=== PATIENT | female | born 1930 | race African-American/Black ===

== ENCOUNTER 2020-12-09 16:16 | Inpatient (IN) | payer OTHER ==
[~2020-12-09] VITALS: Ht 154.9 cm; Wt 103.5 kg
--- NOTE | ~2020-12-09 | EMS ---
[address] [address] EMS Patient Care Report Name: MIHAI HARDY Room #: REG EDEN Ghotra#: [id number] Admission: 12/09/20 Attend Phys: Discharge: Date of : [birth year] Report #: [id number] THIS REPORT FOR: //name// Report Transmitted: 12/09/2020 16:01 EMS Care Summary [place], [place]/[facility] Incident [id number] @ 12/09/2020 15:37 Incident Location [facility] CRISTI MARTINEZ F3-1 Patient MIHAI HARDY Female, 89 Years 1930 Patient Address [address] [address] Patient History Hypertension (HTN),Kidney/Renal Failure,Gastrointesinal Hemorrhage,Osteoarthritis,Anemia,Edema,Sleep Apnea,Type 2 Diabetes,Coronary Artery Disease (CAD),Myocardial Infarction (OR),Novel Coronavirus (COVID-19), Patient Allergies Niacin, Patient Medications Atorvastatin, Oxycodone, Famotidine, Isosorbide, Docusate Sodium, ASA, Carvedilol, Ferrous Sulfate, Gabapentin, Insulin, Chief Complaint Possible blood clot in right leg Disposition Transported No Lights/[place] Dispatch Reason Sick Person Transported To [facility] [address] [place] [address] EMS Patient Care Report Name: MIHAI HARDY Room #: REG [place]#: [id number] Admission: 12/09/20 Attend Phys: Discharge: Date of : [birth year] Report #: [id number] Called to the scene for a sick. Upon arrival, pt was ROMERO x 3 sitting in bed with O2 on. NH staff reported a blood clot in the pt right leg and she needed transported to [facility] ER for further eval & tx. Pt said her leg has felt this way for 2-3 weeks and nothing was done. Pt was moved to the EMS cot and loaded into the ambulance w/o incident. Vitals obtained. Attempt IV w/o success. Vitals repeated. O2 cont. En route: no changes. RR to [facility]. Arrived: pt taken to ER #3 and moved to their bed w/o incident. Pt care & report to ER staff. Initial Vitals @16:07P: 87,R: 16,BP: 150/76,Pain: 0/10,GCS: 15,CO: 3,SpO2: 96,Revised Trauma: 12, @16:01P: 16,R: 16,BP: 139/69,Pain: 0/10,GCS: 15,SpO2: 82,Revised Trauma: 12, Assessments @15:50MENTAL:Person Oriented,Time Oriented,Event Oriented,Place Oriented,SKIN:HEENT:LUNG SOUNDS:ABDOMEN:PELVIS//GI:EXTREMITIES:Right Leg: Abnormal Sensation,Left Arm: No Abnormalities,Right Arm: No Abnormalities,Left Leg: No Abnormalities,PULSE:Radial: 2+ Normal,Pedal: 1+ Thready,NEURO:No Abnormalities, Impression Extremity Pain Procedures @15:50ALS AssessmentResponse: UnchangedSucceeded@16:04Saline Lock cc (20 ga) Site: Antecubital-LeftResponse: UnchangedFailed@15:58StretcherResponse: Unchanged@PTAOxygen FlowRate: 2 Device: Nasal Cannula (NC) Response: ImprovedSucceeded Timeline CELEBRITY MANAGER,Oxygen FlowRate: 2 Device: Nasal Cannula (NC) Response: ImprovedSucceeded, 15:34,Call Received 15:34,Dispatch Notified 15:37,Dispatched 15:37,En Route 15:47,On Scene 15:50,At Patient 15:50,ALS Assessment,Response: UnchangedSucceeded, 15:58,Stretcher,Response: Unchanged 16:01,BP: 139/69 M,PULSE: 16,RR: 16 R,SPO2: 82 Ox,ETCO2: ,BG: ,PAIN: 0,GCS: 15, 16:04,Saline Lock cc 20 ga Site: Antecubital-Left,Response: UnchangedFailed, 16:07,BP: 150/76 M,PULSE: 87,RR: 16 R,SPO2: 96 Ox,ETCO2: ,BG: ,PAIN: 0,GCS: 15, 16:07,Depart Scene 16:10,At Destination 16:29,Call Closed [address] [address] EMS Patient Care Report Name: MIHAI HARDY Room #: MATILDA Ghotra#: [id number] Admission: 12/09/20 Attend Phys: Discharge: Date of : [birth year] Report #: [id number] Disclaimer v1.1 Copyright 202 [employer] This EMS Care Summary contains data elements from the applicable legal record (which may be displayed differently). It is designed to provide pertinent information for the following purposes: continuity of care, clinical quality, and state data reporting. The complete legal record is available to ED staff and administrators of the receiving hospital in [employer]'s Patient Tracker. All data is provided "as is."
[2020-12-09 16:17] VITALS: BP 142/70
[2020-12-09 17:13] LABS: ANION GAP 6 mmol/L (7-16); BUN 23 mg/dL (7-18); CALCIUM 9.2 mg/dL (8.5-10.1); CHLORIDE 105 mmol/L (98-107); CO2 28 mmol/L (21-32); GLUCOSE 138 mg/dL (74-106); POTASSIUM 4.6 mmol/L (3.5-5.1); SODIUM 139 mmol/L (136-145)
[2020-12-09 17:19] LABS: ALBUMIN 1.7 g/dL (3.4-5.0); APTT 26.6 Seconds (24.5-32.8); DIRECT BILIRUBIN < 0.1 mg/dL (<0.1-0.2); PROTIME 10.6 Seconds (9.3-11.4); SGOT 21 U/L (15-37); SGPT 20 U/L (30-65); TOTAL BILIRUBIN 0.3 mg/dL (0.2-1.0); TOTAL PROTEIN 7.7 g/dL (6.4-8.2)
[2020-12-09 17:20] LABS: HEMATOCRIT 22.7 % (37.0-47.0); HEMOGLOBIN 7.3 gm/dL (12.0-15.0); MCH 23.9 pg (26.0-34.0); MCHC 32.2 g/dL (28.0-37.0); MCV 74.3 fL (80.0-100.0); PLATELET COUNT 274 thou/uL (150-400); RBC 3.06 mil/uL (4.20-5.00); RDW 24.8 % (10.5-14.5); WBC 10.1 thou/uL (4.0-11.0)
[2020-12-09 17:49] LABS: ABSOLUTE NEUTROPHILS 6.7 thou/uL (1.4-8.2); ANISOCYTOSIS 2+; LARGE PLATELETS OCCASIONAL; MICROCYTES 1+
[2020-12-09 17:50] LABS: TARGET CELLS FEW
[2020-12-09] MEDS ORDERED: ASA81BEC PO (20:15)
[2020-12-09] MEDS ORDERED: FERROUS SULFAT325 MG PO (20:16)
[2020-12-09] MEDS ORDERED: DULCOLAX STOOL100 M1 PO (20:16)
[2020-12-09] MEDS ORDERED: CARVEDILOL3.125 MG PO (20:16)
[2020-12-09] MEDS ORDERED: FAMOTIDINE20 MG PO (20:16)
[2020-12-09] MEDS ORDERED: LIPITOR40 MG PO (20:16)
[2020-12-09] MEDS ORDERED: NEURONTIN100 MG PO (20:17)
[2020-12-09] MEDS ORDERED: FLOMAX0.4 MG PO (20:17)
[2020-12-09] MEDS ORDERED: LANTUSSOLASTAR SUBQ (20:18)
[2020-12-09] MEDS ORDERED: MIRALAX17 GM PO (20:18)
[2020-12-09] MEDS ORDERED: ISOSORBIDE MONO60 M1 PO (22:23)
[2020-12-09] MEDS ORDERED: LIDODERM1 EACH TOP (22:23)
[2020-12-09] MEDS ORDERED: MILK OF MA400 MG/5 M PO (22:23)
[2020-12-09] MEDS ORDERED: ROXICODONE5 M2 PO (22:24)
[2020-12-09] MEDS ORDERED: JANUVIA25 MG PO (22:25)
[2020-12-09] MEDS ORDERED: REFRESH TEARS15 ML OPHTHALMIC (22:25)
[2020-12-10 08:06] LABS: HEMATOCRIT 23.3 % (37.0-47.0); MCH 24.1 pg (26.0-34.0); MCHC 31.5 g/dL (28.0-37.0); MCV 76.5 fL (80.0-100.0); RBC 3.04 mil/uL (4.20-5.00); RDW 25.2 % (10.5-14.5); WBC 11.7 thou/uL (4.0-11.0)
[2020-12-10 08:10] LABS: CALCIUM 9.4 mg/dL (8.5-10.1); CREATININE 1.8 mg/dL (0.6-1.0)
[2020-12-10 08:12] LABS: POTASSIUM 5.6 mmol/L (3.5-5.1)
[2020-12-10 08:13] LABS: HEMOGLOBIN 7.3 gm/dL (12.0-15.0)
[2020-12-10 11:48] LABS: URINE BILIRUBIN NEGATIVE (Negative); URINE BLOOD NEGATIVE (Negative); URINE COLOR YELLOW; URINE GLUCOSE-RANDOM* NEGATIVE (Negative); URINE KETONES NEGATIVE (Negative); URINE LEUKOCYTES-REFLEX NEGATIVE (Negative); URINE NITRITE-REFLEX NEGATIVE (Negative); URINE PROTEIN (DIPSTICK) 1+ (Negative)
[2020-12-10 11:49] LABS: URINE CLARITY SL HAZY
[2020-12-10 12:03] LABS: BACTERIA-REFLEX >30 Many /HPF (None Seen); CASTS None Seen /LPF (None Seen); CRYSTALS None Seen /LPF (None Seen); RENAL EPITHELIAL CELLS 4-10 Moderate /LPF (None Seen); SQUAMOUS None Seen /LPF (0-3); TRANSITIONAL EPITHEL CELL 0-3 Few /LPF (None Seen); URINE RBC None Seen /HPF (0-2); URINE WBC-REFLEX 0-5 Rare /HPF (0-5)
[2020-12-10 12:08] LABS: HEMATOCRIT 23.3 % (37.0-47.0); HEMOGLOBIN 7.7 gm/dL (12.0-15.0)
[2020-12-10 12:10] LABS: CALCIUM 9.7 mg/dL (8.5-10.1); CREATININE 1.8 mg/dL (0.6-1.0)
[2020-12-10 12:11] LABS: POTASSIUM 4.1 mmol/L (3.5-5.1)
[2020-12-10 12:54] VITALS: BP 104/48
[2020-12-10 17:48] VITALS: BP 126/50
--- NOTE | 2020-12-10 19:47 | NUR ---
SPOKE WITH DR. LYNNE REGARDING PATIENT'S CODE STATUS. DR. LYNNE STATES THAT THE PATIENT WAS CLEAR STATE OF MIND WHEN DISCUSSING THE DESIRE TO BE DNR STATUS. DR. LYNNE STATES SHE WILL PLACE DNR ORDER, BUT DOES NEED TO CALL AND SPEAK WITH DPOA TO MAKE SURE THAT ALL PARTIES ARE ON THE SAME PAGE. PATIENT MADE WISHES CLEAR THAT SHE WANTS NO HEROIC MEASURES WHEN SPEAKING WITH DR. LYNNE.
[2020-12-10 20:40] VITALS: BP 143/58
--- NOTE | 2020-12-10 23:31 | NUR ---
INFORMED BY RT THAT PT REFUSED CPAP
[2020-12-11] VITALS (8 sets, daily range): BP systolic 104–155; BP diastolic 53–81
[2020-12-11 04:20] LABS: INR 1.1; PROTIME 10.8 Seconds (9.3-11.4)
--- NOTE | 2020-12-11 04:54 | HC ---
[facility] [place] [address] CONSULTATION Name: MIHAI HARDY Room #: 450-P ADM IN M.R.#: [id number] Admission: 12/09/20 Attend Phys: Felice Jones MD Discharge: Date of : [birth year] Report #: [id number] THIS REPORT FOR: cc: Carlos Ravi MD, Christopher B. MD Barry, Joseph W. MD ~ DATE OF SERVICE: 12/10/2020 INFECTIOUS DISEASE CONSULTATION ATTENDING PHYSICIAN: Dr. Jones. REASON FOR EVALUATION: Pneumonitis. The patient was previously diagnosed with COVID back in 09/2020, now presents with right lower extremity deep venous thrombosis. HISTORY OF PRESENT ILLNESS: Chart reviewed, patient examined. This 89-year-old with known history of diabetes mellitus, hypertension, has known vasculopathy, who had been staying at a facility, had increasing pain associated with the right lower extremity. She notes it was through the extent of the limb, also had some dyspnea. She was apparently ill. This prompted evaluation including venous Doppler, which showed evidence of right lower extremity DVT. She was referred for ongoing treatment as far as the evaluation of shortness of breath over the course of last 2-3 weeks. Followup chest x-ray did show diffuse bilateral infiltrates both alveolar as well as interstitial. There is possibility of pulmonary emboli, underwent V/Q scan, felt to be low probability and pulmonary embolic disease. BNP was elevated at 4789. Urinalysis was fairly unrevealing as well. She has not been febrile that she knows. ALLERGIES: NIACIN. CURRENT MEDICATIONS: Include gabapentin, enoxaparin, famotidine, atorvastatin, tamsulosin, aspirin, carvedilol, and furosemide. PAST MEDICAL HISTORY: Includes diabetes mellitus type 2, history of hypertension, hyperlipidemia, chronic anemia, obstructive sleep apnea, known coronary artery disease with previous acute myocardial infarction, status post aortocoronary bypass grafting, now with right lower extremity DVT and previous history of COVID-19 infection. SOCIAL HISTORY: No ethanol. No illicit drug use. FAMILY HISTORY: Noncontributory. REVIEW OF SYSTEMS: Otherwise, not obtainable. [facility] [address] [place] [address] CONSULTATION Name: MIHAI HARDY [facility] IN M.R.#: [id number] Admission: 12/09/20 Attend Phys: Felice Jones MD Discharge: Date of : [birth year] Report #: [id number] PHYSICAL EXAMINATION: GENERAL: She appears chronically ill, undernourished. She is in a position with left lateral. She complains of severe right lower extremity pain, difficult to redirect her. She is tearful at times. VITAL SIGNS: Temperature 97.8, pulse 80, respirations 16, and blood pressure 104/48. SKIN: Warm, dry, no rashes. HEENT: Extraocular muscles intact. NECK: Appears to be supple. She is on supplemental oxygen 1 liter per nasal cannula. LUNGS: Diminished breath sounds overall. She has got some scattered crackles bilaterally. HEART: Regular, soft systolic murmur. ABDOMEN: Soft. There are no apparent peritoneal signs, some tenderness. GENITOURINARY AND RECTAL: Deferred. LABORATORY DATA: Electrolytes: Sodium 136, potassium 4.1, chloride 100, bicarbonate is 30, BUN and creatinine 23 and 1.8, and glucose of 105. Urinalysis, 0-5 white cells. CBC: White count 11.7, H and H 7.3 and 23.3, and platelets of 302. ASSESSMENT AND PLAN: Pneumonitis, complicated by respiratory failure, likely multifactorial, certainly cannot exclude a component of congestive heart failure, but at risk for aspiration as well. There is no evidence of PE at this point. I think it is reasonable can start empiric therapy on her given the overall significant risk of her lack of reserve the setting of pneumonitis which would progress and __ anything. I think she can utilize the incentive spirometer either see how she does clinically and continue therapy for the DVT. Try to improve her nutritional status as able. Symptomatic pain control as well. <ELECTRONICALLY SIGNED> By: Arash Ramachandran MD 12/11/20 0454 1703 23 Arash Ramachandran MD /nt
--- NOTE | 2020-12-11 07:49 | NUR ---
PT WAS ADMITTED TO THE UNIT FROM THE ER IN A STABLE CONDITION.PT WAS ON HEPARIN DRIP BEFORE SHE GOT TO THE FLOOR.PT C/O PAIN,MANAGED WITH MED.FERNANDEZ CATH TO DD.ADMISSION HX,EDUCATION AND ASSESSMENT COMPLETED.PT ON 2L/NC.REPORT TO AM NURSE.
[2020-12-11 08:40] LABS: ALBUMIN 1.8 g/dL (3.4-5.0); CALCIUM 9.5 mg/dL (8.5-10.1); MAGNESIUM 2.1 mg/dL (1.8-2.4); PHOSPHORUS 4.9 mg/dL (2.6-4.7); TOTAL BILIRUBIN 0.2 mg/dL (0.2-1.0); TOTAL PROTEIN 7.2 g/dL (6.4-8.2)
[2020-12-11 09:18] LABS: ABSOLUTE NEUTROPHILS 7.8 thou/uL (1.4-8.2); BASOPHILS 0.5 % (0.0-2.0); EOSINOPHILS 6.9 % (0.0-3.0); HEMATOCRIT 22.2 % (37.0-47.0); LYMPHOCYTES 16.8 % (24.0-44.0); MCH 23.5 pg (26.0-34.0); MCHC 31.7 g/dL (28.0-37.0); MCV 73.9 fL (80.0-100.0); MONOCYTES 11.1 % (1.0-8.0); PLATELET COUNT 326 thou/uL (150-400); POLYS 64.7 % (36.0-66.0); RBC 3.01 mil/uL (4.20-5.00)
[2020-12-11 10:21] LABS: ANISOCYTOSIS 2+; HYPOCHROMASIA 1+; OVALOCYTES OCCASIONAL; POIKILOCYTOSIS 1+; TARGET CELLS FEW
[2020-12-11 10:22] LABS: LARGE PLATELETS OCCASIONAL; MICROCYTES 1+; POLYCHROMASIA SLIGHT
--- NOTE | 2020-12-11 12:40 | 2DMMODE ---
[facility] [place] [address] 2 D/M-MODE ECHOCARDIOGRAM Name: MIHAI HARDY Room #: 450-P ADM IN M.R.#: [id number] Admission: 12/09/20 Attend Phys: Felice Jones MD Discharge: Date of : [birth year] Report #: [id number] THIS REPORT FOR: cc: Carlos Ravi MD, Christopher B. MD Lundgren, Craig H. MD [facility] ~ APPROVED REPORT Study performed: 12/10/2020 08:45:06 EXAM: Comprehensive 2D, Doppler, and color-flow Echocardiogram Patient Location: Bedside Room #: ER 3 Status: on-call BSA: 2.01 HR: 73 bpm BP: 156/54 mmHg Rhythm: NSR Other Information Study Quality: Adequate Technically limited study due to body habitus, inability to position patient. Indications Congestive Heart Failure 2D Dimensions RVDd: 33.34 mm IVSd: 7.82 (7-11mm) LVOT Diam: 18.70 (18-24mm) LVDd: 43.98 mm PWd: 10.35 (7-11mm) Ascending Ao: 23.56 (22-36mm) LVDs: 32.52 (25-40mm) Aortic Root: 26.84 mm IVC: 21.00 mm Volumes Left Atrial Volume (Systole) Single Plane 4CH: 58.47 mL Single Plane 2CH: 78.14 mL LA ESV Index: 35.00 mL/m2 Aortic Valve AoV Peak Thomas.: 2.07 m/s AO Peak Gr.: 17.17 mmHg LVOT Max P.06 mmHg AO Mean Gr.: 7.69 mmHg LVOT Mean P.43 mmHg [facility] [address] [address] 2 D/M-MODE ECHOCARDIOGRAM Name: MIHAI HARDY Room #: [address] [place] [address] [place] [facility]#: [id number] Admission: 12/09/20 Attend Phys: Felice Jones MD Discharge: Date of : [birth year] Report #: [id number] AO V2 Mean: 1.30 m/s LVOT Max V: 1.12 m/s AO V2 VTI: 48.12 cm LVOT Mean V: 0.71 m/s JUAN (VTI): 1.57 cm2 LVOT V1 VTI: 27.49 cm JUAN Vmax: 1.49 cm2 SV (LVOT): 75.46 mL Mitral Valve E/A Ratio: 0.9 MV Decel. Time: 197.20 ms MV E Max Thomas.: 1.08 m/s MV A Thomas.: 1.19 m/s MV PHT: 57.19 ms IVRT: 83.04 ms Pulmonary Valve PV Peak Thomas.: 0.96 m/s PV Peak Gr.: 3.68 mmHg Pulmonary Vein P Vein S: 0.45 m/s P Vein A: 0.21 m/s P Vein D: 0.59 m/s P Vein A Dur.: 114.2 msec P Vein S/D Ratio: 0.76 Tricuspid Valve TR Peak Thomas.: 3.85 m/s RAP Estimate: 5.00 mmHg TR Peak Gr.: 59.23 mmHg PA Pressure: 64.00 mmHg Left Ventricle The left ventricle is normal size. There is normal LV segmental wall motion. There is normal left ventricular wall thickness. The left ventricular systolic function is normal. The left ventricular ejection fraction is within the normal range. LVEF is 60-65%. Mild diastolic dysfunction Right Ventricle The right ventricle is normal size. Atria Left atrium is mildly dilated. Right atrium is at the upper limits of normal. Aortic Valve Aortic valve leaflets are mildly calcified, trileaflet. Mild stenosis No aortic regurgitation is present. There is mild valvular aortic stenosis. Calculated aortic valve area is 1.6 cm2 with maximum pressure gradient of 17 mmHg and mean pressure gradient of 7.7 [place] [address] 2 D/M-MODE ECHOCARDIOGRAM Name: MIHAI HARDY Room #: [address] [place] [address] IN M.R.#: [id number] Admission: 12/09/20 Attend Phys: Felice Jones MD Discharge: Date of : [birth year] Report #: [id number]. Mitral Valve Mitral valve leaflets are mildly calcified. Trace mitral regurgitation. No evidence of mitral valve stenosis. Tricuspid Valve The tricuspid valve is normal in structure. Trace to mild tricuspid regurgitation. PAP is estimated at 64 mmHg. Pulmonic Valve The pulmonary valve is normal in structure. Mild pulmonic regurgitation. Great Vessels The aortic root is normal in size. IVC is upper limits of normal in size and collapses >50% with inspiration. Pericardium There is no pericardial effusion. <Conclusion> The left ventricular systolic function is normal. There is normal LV segmental wall motion. LVEF is 60-65%. Mild diastolic dysfunction Left atrium is mildly dilated. Aortic valve leaflets are mildly calcified, trileaflet. Mild stenosis, no insufficiency Mitral valve leaflets are mildly calcified. Trace mitral regurgitation. Trace to mild tricuspid regurgitation. Pulmonary artery pressure estimated at 64 mmHg. There is no pericardial effusion. <ELECTRONICALLY SIGNED> By: Delano Samuel MD, FACC 12/11/20 1240 1240 1240 Delano Samuel MD, FACC /INF
--- NOTE | 2020-12-11 19:40 | NUR ---
VERBAL ORDER RECEIVED FROM DR LYNNE TO TITRATE HEPERIN DRIP TO 10 UNITS/KG/HR. APTT TO BE RECHECKED IN 2HRS.
--- NOTE | 2020-12-11 19:50 | NUR ---
Assumed pt care this am, received on a heparin drip informed house sup for pt to be moved to the right level of care, was advised no action will be taken and the pt will stay on the floor as mentioned by the transfer and pumphouse operator. FC in place, drainig yellow urine. Right leg pain and edema noted, managed with pain medications. Was sent down for diagnostics (xr...) refised blood transfusion at that time, pt requested this be done after dinner. IV team placed a 20g for this. APTT results came back at 1640 critical labs called out to the MD, orders given adria stop heparin drip for 2 hours and retake aptt. Pending stool collection as well. POC followed, partiel relief is noted for pain, medications given as per emar. Consent signed for blood trasnfusion, endorsed to the night nurse.
[2020-12-12 04:59] VITALS: BP 155/62
[2020-12-12 06:14] LABS: ABSOLUTE NEUTROPHILS 6.3 thou/uL (1.4-8.2); BASOPHILS 0.3 % (0.0-2.0); EOSINOPHILS 6.5 % (0.0-3.0); HEMATOCRIT 27.4 % (37.0-47.0); LYMPHOCYTES 19.6 % (24.0-44.0); MCH 24.7 pg (26.0-34.0); MCHC 32.7 g/dL (28.0-37.0); MCV 75.5 fL (80.0-100.0); MONOCYTES 12.8 % (1.0-8.0); PLATELET COUNT 289 thou/uL (150-400); POLYS 60.8 % (36.0-66.0); RBC 3.63 mil/uL (4.20-5.00); RDW 24.2 % (10.5-14.5); WBC 10.3 thou/uL (4.0-11.0)
[2020-12-12 06:28] LABS: ALBUMIN 1.7 g/dL (3.4-5.0); CREATININE 2.3 mg/dL (0.6-1.0); MAGNESIUM 1.9 mg/dL (1.8-2.4); PHOSPHORUS 4.6 mg/dL (2.5-4.9); POTASSIUM 3.5 mmol/L (3.5-5.1); TOTAL BILIRUBIN 0.5 mg/dL (0.2-1.0); TOTAL PROTEIN 7.5 g/dL (6.4-8.2)
--- NOTE | 2020-12-12 07:19 | NUR ---
PLACING PT. ON HOLD FOR OT DUE TO DR. LYNNE'S PROGRESS NOTE ON 12/11/2020 STATING TO HOLD P.T. AT THIS TIME DUE TO PAINFUL R LE DVT. OT WILL ALSO HOLD AN WAIT FOR NEW ORDERS.
--- NOTE | 2020-12-12 08:04 | NUR ---
ASSUMED CARE OF PT AT 1900HRS. PT AOX3 AND LETS NEEDS BE KNOWN. FALL PRECAUTION IN PLACE. HEPERIN DRIP CONTINUED. O2 CONTINUED AT 2L VIA NC. FERNANDEZ IN PLACE AND PATIENT. 1 UNIT PRBC TRANSFUSED. PT COMPLAINED OF RLE PAIN AND PRN PAIN MEDS PROVIDED. PT WAS ABKE TO SLEEP PART OF THE SHIFT. VSS AND NO S/S OF ACUTE DISTRESS. REPORT GIVEN TO AM RN.
[2020-12-12 08:06] VITALS: BP 131/57
[2020-12-12 12:05] LABS: ANISOCYTOSIS 3+
[2020-12-12 15:18] LABS: HEMATOCRIT 28.9 % (37.0-47.0); HEMOGLOBIN 9.2 gm/dL (12.0-15.0)
--- NOTE | 2020-12-12 16:30 | NUR ---
PT ADMITTED RELATED TO DVT,CHF. MC REVEIWED CHART AND SPOKE WITH CARE TEAM. CM CALLED AND SPOKE WITH PT OVER THE PHONE THIS DAY. 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 PT INDICATED THAT SHE WON'T BE ABLE TO RETURN HOME ALONE AND ASKED THAT CM SPEAK TO HER DPOA REGARDING DC PLANNING. CM ATTEMTPED NUMEROUS PHONE CALLS TO PT'S DPOA WITH NO ANSWER. STAFF AT [facility] INDICATED THAT FAMILY HAD INDICATED DESIRE FOR PT TO GO TO PENITENTIARY CARE AT [facility] [employer] SKILLED. CM TO CONTINUE TO REACH OUT TO DPOA TO FACILITATE DC POSSIBLE TO [facility].
[2020-12-12 16:53] VITALS: BP 152/61
--- NOTE | 2020-12-12 19:34 | NUR ---
Assumed pt care at 7am.Pt in bed resting and waiting for breakfast.Assessment completed.vss.Sr per revenue cycle manager.Dr Lopez and Duarte here,order noted. Pt left for us of lower extremity this am and returned to room one hour later. Pt on heparin gtt and adjusted rate per APTT report.Oxy ir given for leg pain as requested by pt with partial relief.Pt transfered to [facility] later this evening around 1800 for closer monitor on heparin gtt.Report off to Lupe hidalgo.Family notified about pt transfered to [facility].
--- NOTE | 2020-12-12 20:01 | NUR ---
PT ARRIVED TO UNIT FROM 4W APPROX 1814. PT ALERT, ORIENTED, VSS. O2 WNL 2L. DENIES SOB. HEPARIN GTT CONTINUES PER PROTOCOL. DENIES NEEDS. REPORT PASSED TO NOC RN.
[2020-12-12 20:30] VITALS: BP 118/58
[2020-12-13 00:45] VITALS: BP 139/63
--- NOTE | 2020-12-13 04:05 | NUR ---
Assumed pt care at 1900. Pt is alert and oriented. No sign of distress noted. Pt verblized pain. Pain med administered upon request. Pt is stable. Fall precaution in place. Assessment completed and documented. No acute events noted. No acute events overnight. Denies chest pain. Continue to monitor. No Further needs at this time.
[2020-12-13 04:45] VITALS: BP 137/64
[2020-12-13 06:52] LABS: HEMATOCRIT 27.2 % (37.0-47.0); HEMOGLOBIN 8.6 gm/dL (12.0-15.0); MCH 23.9 pg (26.0-34.0); MCHC 31.7 g/dL (28.0-37.0); MCV 75.6 fL (80.0-100.0); RBC 3.6 mil/uL (4.20-5.00); RDW 24.2 % (10.5-14.5)
[2020-12-13 07:15] VITALS: BP 144/62
[2020-12-13 07:28] LABS: CALCIUM 9.2 mg/dL (8.5-10.1); CREATININE 2.4 mg/dL (0.6-1.0); POTASSIUM 3.7 mmol/L (3.5-5.1)
--- NOTE | 2020-12-13 09:31 | NUR ---
Assess due to high BMI 43.1, extreme class III obesity. admit with CHF. Appetite is good. Wts down 3 lb. On appropriate carb controlled, 2g Na diet order. Low nutrition risk
[2020-12-13 12:30] VITALS: BP 113/50
--- NOTE | 2020-12-13 15:35 | NUR ---
Spoke with [facility] who reports they have no DPOA paperwork on file. Reports plan for patient to dc ltc to [facility]. Sp with [facility] who reports they have accepted patient for ltc. Sp with sister who reports dc date was to be Saturday from [facility]. She reports plan is to dc to [facility]. plan to send updates.
--- NOTE | 2020-12-13 16:53 | NUR ---
FAXED CLINICAL UPDATE TO [facility] SPOKE WITH RENÉ IN ADM SHE RECEIVED UPDATE. DP TO FOLLOW.
[2020-12-13 17:00] VITALS: BP 175/56
--- NOTE | 2020-12-13 18:14 | NUR ---
ASSESSMENT CHARTED - MEDS PER VIBHA - ALEIDA DIET AND FLUIDS. NO CO'S OF NAUSEA. GIVEN PAIN MEDS WITH MOD/ TO MIN EFFECT ON PAIN PER PATIENT. UA TO LAB ORDERED - HEPARIN CONTINUES. THERAPEUTIC THIS AM. PT SEEN BY PT / OT THIS SHIFT. NO CO'S AT THE PRESENT TIME.
[2020-12-13 20:45] VITALS: BP 142/61
[2020-12-14 04:45] VITALS: BP 150/58
[2020-12-14 07:15] VITALS: BP 132/49
[2020-12-14 07:20] LABS: ALBUMIN 1.8 g/dL (3.4-5.0); CALCIUM 9.7 mg/dL (8.5-10.1); CREATININE 2.4 mg/dL (0.6-1.0); PHOSPHORUS 4.4 mg/dL (2.6-4.7)
[2020-12-14 07:38] LABS: HEMATOCRIT 27.3 % (37.0-47.0); HEMOGLOBIN 8.7 gm/dL (12.0-15.0); MCH 24.2 pg (26.0-34.0); MCHC 31.8 g/dL (28.0-37.0); RBC 3.59 mil/uL (4.20-5.00); RDW 24.4 % (10.5-14.5); WBC 12.8 thou/uL (4.0-11.0)
[2020-12-14 11:23] VITALS: BP 121/52
[2020-12-14 11:57] LABS: PROT/CREAT RATIO 1.2; URINE CREATININE-RANDOM* 90.3 mg/dL; URINE PROTEIN-RANDOM* 104.5 mg/dL (<11.9)
--- NOTE | 2020-12-14 13:13 | NUR ---
Patient possibly dc to ltc in am. Discussed with patitent possible dc in am to [facility]. She is agreeable.
[2020-12-14 15:45] VITALS: BP 136/55
--- NOTE | 2020-12-14 20:04 | NUR ---
ASSESSMENT CHARTED - MEDS PER JAN - ALEIDA DIET AND FLUIDS - NO CO'S OF PAIN OR NASUEA. GIVEN PAIN MEDS PER JAN - PT STATES IN COMSTANT PAIN AND MEDS JUST HELP A LITTLE. PT UP TO [facility] AND HAD BM THIS AFTERNOON. PT UP WITH MOD ASSIST - USE OF GAIT BELT. PT TO HAVE HEPARIN D/C'S THIS EVEING AND STARTED ON PO ANTI-COAGULATION - PT OR POSSIBLE TRANSFER TOMORROW TO LTC FACILITY. NO CO'S AT THE PRESENT TIME.
[2020-12-14 20:27] VITALS: BP 123/58
[2020-12-15 03:13] VITALS: BP 149/62
--- NOTE | 2020-12-15 04:27 | NUR ---
ASSESSED PT HYDROCODONE GIVEN FOR PAIN. IV HEPARIN DC. ON 2L OF O2. BSG CHECKED AND INSULIN GIVEN. NO FURTHER SIGNS OF DISCOMFORT. FALL PREC IN PLACE AND CALL LIGHT AT REACH WILL CONT TO MONITOR.
[2020-12-15 05:06] LABS: ALBUMIN 1.8 g/dL (3.4-5.0); CALCIUM 9.1 mg/dL (8.5-10.1); CREATININE 2.3 mg/dL (0.6-1.0); PHOSPHORUS 4.3 mg/dL (2.6-4.7); POTASSIUM 4.1 mmol/L (3.5-5.1)
[2020-12-15 07:07] VITALS: BP 149/63
[2020-12-15] MEDS ORDERED: ELIQUIS5 MG PO (09:44)
[2020-12-15 11:25] VITALS: BP 136/58
--- NOTE | 2020-12-15 13:17 | NUR ---
Pt dcing to snf at [facility] this afternoon 3pm w/c meena. CM attempted x 3 to reach pt's sister Constantine with out response. The pt also notes she has attempted to call her sisters. Call back rec'd from sister Les and she will confirm dc time with [facility]; nursing station number provided should Constantine have any questions. Pt aware of the dc plan and agreeable. Chart copy and 124c ready to be sent with the pt. Dc assistant media planner to fax the final dc orders. Nursing to call report.
--- NOTE | 2020-12-15 14:28 | NUR ---
PT A&OX4, VSS, PAIN IN RIGHT LEG. PAIN MEDICATION GIVEN. PATIENT ON ROOM AIR, SATS AT 93%. PATIENT HAD BM TODAY. FERNANDEZ REMOVED AND PATIENT URINATING. PATIENT EATS AND DRINKS WITHOUT ISSUE. PATIENT DISCHARGING APPROX 1500 TO [facility]. REPORT CALLED TO CINDY. NO SIGNS OF DISTRESS. WILL CONTINUE TO MONITOR.
== END 2020-12-15 17:28 | DRG 299 ==
LOC: ER 16:16 → EROBS 20:25 → 4W 20:25 → EROBS 12-10 10:47 → 4W 12-11 03:57 → 2N 12-12 18:30
PROVIDERS: Emergency Medicine; Internal Medicine Nephrology; Nurse Practitioner; Nurse Practitioner Family; ADMIT Internal Medicine; ATTEND Internal Medicine
PROC: 30233N1 Transfusion of Nonautologous Red Blood Cells into Peripheral Vein, Percutaneous Approach (ICD-10-PCS; principal; 2020-12-11)
DX: I82.411 Acute embolism and thrombosis of right femoral vein (principal); U07.1 COVID-19; J12.82 Pneumonia due to coronavirus disease 2019; J96.00 Acute respiratory failure, unspecified whether with hypoxia or hypercapnia; I50.33 Acute on chronic diastolic (congestive) heart failure; I13.0 Hypertensive heart and chronic kidney disease with heart failure and stage 1 through stage 4 chronic kidney disease, or unspecified chronic kidney disease; N18.4 Chronic kidney disease, stage 4 (severe); I42.9 Cardiomyopathy, unspecified; N17.9 Acute kidney failure, unspecified; I82.431 Acute embolism and thrombosis of right popliteal vein; G47.33 Obstructive sleep apnea (adult) (pediatric); E78.5 Hyperlipidemia, unspecified; I25.10 Atherosclerotic heart disease of native coronary artery without angina pectoris; Z86.16 Personal history of COVID-19; N32.81 Overactive bladder; D50.9 Iron deficiency anemia, unspecified; E11.22 Type 2 diabetes mellitus with diabetic chronic kidney disease; Z66 Do not resuscitate; S89.91XA Unspecified injury of right lower leg, initial encounter; D63.8 Anemia in other chronic diseases classified elsewhere; E87.5 Hyperkalemia; Z88.1 Allergy status to other antibiotic agents; I25.2 Old myocardial infarction; Z95.1 Presence of aortocoronary bypass graft; Z79.899 Other long term (current) drug therapy; W18.39XA Other fall on same level, initial encounter; Y93.89 Activity, other specified; Y92.89 Other specified places as the place of occurrence of the external cause; Y99.8 Other external cause status; Z79.82 Long term (current) use of aspirin
CPT/HCPCS: 10045; 10081

== ENCOUNTER 2021-01-03 17:34 | Inpatient (IN) | payer OTHER ==
[~2021-01-03] VITALS: Ht 160 cm; Wt 107.7 kg
[~2021-01-03 17:34] MED LIST: ASA81BEC PO; CARVEDILOL3.125 MG PO; DULCOLAX STOOL100 M1 PO; ELIQUIS5 MG PO; FAMOTIDINE20 MG PO; FERROUS SULFAT325 MG PO; FLOMAX0.4 MG PO; ISOSORBIDE MONO60 M1 PO; JANUVIA25 MG PO; LANTUSSOLASTAR SUBQ; LIDODERM1 EACH TOP; LIPITOR40 MG PO; MILK OF MA400 MG/5 M PO; MIRALAX17 GM PO; NEURONTIN100 MG PO; REFRESH TEARS15 ML OPHTHALMIC; ROXICODONE5 M2 PO
[2021-01-03 17:35] VITALS: BP 153/59
[2021-01-03 18:20] LABS: HEMATOCRIT 23.6 % (37.0-47.0); HEMOGLOBIN 7.7 gm/dL (12.0-15.0); MCH 24.5 pg (26.0-34.0); MCHC 32.5 g/dL (28.0-37.0); MCV 75.2 fL (80.0-100.0); PLATELET COUNT 315 thou/uL (150-400); RBC 3.14 mil/uL (4.20-5.00); RDW 24.3 % (10.5-14.5); WBC 10.8 thou/uL (4.0-11.0)
[2021-01-03 18:24] LABS: CALCIUM 8.9 mg/dL (8.5-10.1); CREATININE 2.7 mg/dL (0.6-1.0); POTASSIUM 5.1 mmol/L (3.5-5.1)
[2021-01-03 18:30] LABS: BE(vivo) -6.3 mmol/L (-2 to +3); HCO3 18.8 mmol/L (22.0-26.0); PCO2 35.7 mmHg (35.0-45.0); PO2 99.7 mmHg (80.0-100.0); sO2 97.3 % (92.0-98.0)
[2021-01-03 18:31] LABS: URINE BILIRUBIN NEGATIVE (Negative); URINE BLOOD TRACE (Negative); URINE COLOR YELLOW; URINE GLUCOSE-RANDOM* NEGATIVE (Negative); URINE KETONES TRACE (Negative); URINE NITRITE-REFLEX NEGATIVE (Negative); URINE PROTEIN (DIPSTICK) 2+ (Negative)
[2021-01-03 18:31] LABS: ALBUMIN 1.8 g/dL (3.4-5.0); DIRECT BILIRUBIN 0.2 mg/dL (<0.1-0.2); TOTAL BILIRUBIN 0.4 mg/dL (0.2-1.0); TOTAL PROTEIN 7.9 g/dL (6.4-8.2)
[2021-01-03 18:34] LABS: URINE CLARITY HAZY; URINE LEUKOCYTES-REFLEX 1+ (Negative)
[2021-01-03 18:39] LABS: SQUAMOUS 0-3 Few /LPF (0-3)
[2021-01-03 18:40] LABS: BACTERIA-REFLEX >30 Many /HPF (None Seen); CASTS None Seen /LPF (None Seen); CRYSTALS None Seen /LPF (None Seen); URINE RBC 0-2 Rare /HPF (0-2)
[2021-01-03 19:10] LABS: ABSOLUTE NEUTROPHILS 8.2 thou/uL (1.4-8.2); ANISOCYTOSIS 1+
[2021-01-04 05:48] VITALS: BP 104/37
[2021-01-04 06:40] VITALS: BP 104/34
[2021-01-04 07:10] VITALS: BP 117/68
[2021-01-04 08:27] LABS: HEMATOCRIT 21.9 % (37.0-47.0); HEMOGLOBIN 7.2 gm/dL (12.0-15.0); MCH 24.8 pg (26.0-34.0); MCHC 32.7 g/dL (28.0-37.0); MCV 75.7 fL (80.0-100.0); RBC 2.89 mil/uL (4.20-5.00); RDW 24.7 % (10.5-14.5)
[2021-01-04 08:38] LABS: CALCIUM 8.9 mg/dL (8.5-10.1); CREATININE 2.8 mg/dL (0.6-1.0); POTASSIUM 4.9 mmol/L (3.5-5.1)
--- NOTE | 2021-01-04 11:34 | NUR ---
Patient admitted from ER during shift change due to AMS, UTI; transferred to bed safely. Received awake on bed. Due medications given as prescribed, able to swallow meds w/o difficulty. On O2 at 2lpm via nasal cannula at bedtime and room air during the daytime as per ER nurse's report this AM. On carb contolled diet- tolerating well; no nausea, no vomiting and no abdominal pain noted; assisted and encouraged in eating and drinking. On MS, not on telemetry; no complains and signs of chest pain, crushing sensation and heaviness. Vital signs stable. With maddox in place, draining well; output measured and recorded accordingly. With L EJ- saline locked. With R foot wound- photo to be taken; seen and examined by wound team today. Complained of pain, due PRN pain meds given as prescribed. Pt's sister Constantine called this AM, update given. To continue monitoring patient. Patient seen and examined by physical therapist today, tolerated session.
--- NOTE | 2021-01-04 14:53 | NUR ---
PT ADMITTED RELATED TO UTI AND ENCEPHALOPATHY. CM REVIEWED CHART AND SPOKE WITH CARE TEAM. VIVIEN CALLED AND SPOKE WITH PT SHE INDICATED THAT SHE HAD BEEN AT [facility] BUT MENTIONED [facility] AND IGNITE WELL. CM COUDN'T GET CLEAR TIME FROM OF EVENTS PRIOR TO MOST RECENT ADMISSION. VIVIEN CALLED AND SPOKE WITH PT'S SISTER HUDSON PARIS AND SHE INDICATED THAT PT HAD BEEN AT [facility]. PLAN IS FOR PT TO RETURN TO [facility] ONCE MEDICALLY STABLE. PT IS ON 3L OC AND IV ROCEPHIN. CLINICAL UPDATE SENT TO [facility], VIVIEN SPOKE WITH LIAISON AND SHE INDICATED THAT THEY CAN ACCEPT PT BACK. CM TO FOLLOW INDICATED WITH DC PLANNING.
[2021-01-04 15:45] VITALS: BP 103/46
--- NOTE | 2021-01-04 17:05 | NUR ---
[facility]
[2021-01-04 20:00] VITALS: BP 152/74
--- NOTE | 2021-01-05 04:38 | NUR ---
VSS-AFEBRILE. LUNGS CLEAR-3LNC IN PLACE OVERNIGHT. PAIN WELL CONTROLLED WITH ORAL PAIN MEDICATIONS. TURNS SELF IN BED. PLEASANT THROUGH NIGHT, BUT CONFUSED AT TIMES. FALL PRECAUTIONS IN PLACE-CALLS APPROPRIATELY FOR ANY NEEDED ASSISTANCE.
[2021-01-05 05:16] LABS: HEMATOCRIT 22.5 % (37.0-47.0); HEMOGLOBIN 7.2 gm/dL (12.0-15.0); MCH 24.6 pg (26.0-34.0); MCHC 32.2 g/dL (28.0-37.0); MCV 76.5 fL (80.0-100.0); RBC 2.93 mil/uL (4.20-5.00); RDW 24.6 % (10.5-14.5); WBC 9.9 thou/uL (4.0-11.0)
[2021-01-05 05:21] LABS: CALCIUM 8.7 mg/dL (8.5-10.1); CREATININE 2.7 mg/dL (0.6-1.0); POTASSIUM 5.2 mmol/L (3.5-5.1)
[2021-01-05 08:16] VITALS: BP 158/69
[2021-01-05 12:18] VITALS: BP 159/62
--- NOTE | 2021-01-05 15:12 | NUR ---
CARE TEAM INDICATED THAT PT WILL LIKELY BE MEDICALLY STABLE TO DISHCARGE BACK TO [facility] TOMORROW Saturday01/05/21. CM TO FOLLOW INDICATED WITH DC PLANNING.
[2021-01-05 15:24] VITALS: BP 147/57
--- NOTE | 2021-01-05 17:19 | NUR ---
assumed care at 1700. pt is a&o x3 and plesant and confused. pt is on 2L of oxygen. iv is intact and shows no signs of redness or swelling. maddox in place. wound right heel. fall precaution. call light within reach.
--- NOTE | 2021-01-05 17:43 | NUR ---
PT A&OX2-3, VSS, GENERALIZED PAIN. PATIENT HAS BECOME INCREASINGLY CONFUSED AFTER 1400. PATIENT NOT IMPULSIVE. PATIENT PULLED EJ OUT AT 1150 AND NEW IV PLACED IN LEFT AC. PATIENT ON 2L O2, PRN DURING DAY AND 3L AT NIGHT FOR APNEA. PATIENT HAS FERNANDEZ AND PATENT. PATIENT MOVED TO 4S, 436. NO SIGNS OF DISTRESS. PATIENT DIDNT HAVE ANY BELONGINGS WITH HER.
[2021-01-05 21:44] VITALS: BP 120/51
--- NOTE | 2021-01-06 02:23 | NUR ---
PT AOX2, TO PERSON AND TIME. PT NOTED TO HAVE DEPRESSIVE MOOD PT REPORTS 'I JUST WANT TO , IM READY TO GO'. PT LETHARGIC WITH SHORT ATTENTION SPAN, DIFFICULT TO CONTINUE FURTHER ASSESSMENT. PT REPORTS 10/10 PAIN IN BOTTOM AND RLE. PT RECEIVING SCHEDULED PO APAP QID, PRN PO OXYCODONE Q6HR, WITH PRN PO APAP Q4HR AVAILABLE. PT REPORTS 'A LITTLE' IN REGARDS TO SOB WHILE ON 1.5-2L. PT ASSESSED WITH O2 SATURATION OF 88% WHEN ON 1.5-2L O2. PT REPORTS RELIEF WHEN O2 SUPPLY INCREASED TO 2.5-3L, O2 SATURATION OF 97% PT REMAINS ON 2.5L WITHOUT DESATURATIONS .PT TOLERATING PO INTAKE OF FLUIDS AND CARB CONTROLLED DIET. PT WITHOUT NAUSEA OR EMESIS. PT INCONTINENT OF BOWEL, FERNANDEZ IN PLACE, PATENT AND FUNCTIONING APPROPRIATELY. PT RESTING IN BED THROUGHOUT SHIFT, NOTED TO HAVE EPISODES OF RESTLESSNESS. FREQUENT REPOSITIONING ENCOURAGED, PT NOTED TO SHIFT INDEPENDENTLY, INTERMITTENT ASSISTANCE PROVIDED WITH REPOSITIONING. PT ENCOURAGED TO NOTIFY STAFF FOR ALL NEEDS, CALL LIGHT WITHIN REACH, BED ALARM ON, BED LOCKED IN LOWEST POSITION, ROOM REMAINS NEAR NURSES STATION, FREQUENT MONITORING WILL CONTINUE.
[2021-01-06 08:46] VITALS: BP 141/61
--- NOTE | 2021-01-06 10:47 | NUR ---
Received asleep; drowsy but rousable; confusion noted as well. With O2 at 2-3lpm via nasal cannula, pt removes it from time to time, checked frequently and put back as needed. On MS, not on telemetry; no complains and signs of chest pain, crushing sensation and heaviness. On carb controlled diet- pt very drowsy during breakfast, offered and assisted several times; high risk for aspiration- physician aware re: pt's drowsiness and confusion. With maddox in place, draining well; output measured and recorded accordingly. With SL at L AC; C/D/I, on IV antibiotics. Falls bundle in place. With boggy heels- followed up with US re: prafo boots, re-ordered today; applied to pt by wound nurse. Complained of pain, PRN medication to be reviewed due to pt's drowsiness. Pt's sister Constantine called this AM, update given. Pt turned on her sides regularly, refusing at times. To continue monitoring patient.
--- NOTE | 2021-01-06 11:26 | NUR ---
WOUND CARE F/U; SAW THE PATIENT YESTERDAY. F/U TODAY TO MAKE SURE THE LEFT HEEL IS BEING OFFLOADED EFFECTIVLY. CURRENTLY THE HEEL IS OFFLOADED WITH PILLOWS. I WILL APPLY A PRAFO BOOT. THE BLISTER TO THE HEEL REMAINS UNCHAGED AND STABLE. RECOMMEDNATIONS; -ADDED A PRAFO BOOT. RN PRESENT.
--- NOTE | 2021-01-06 12:23 | NUR ---
ON-GOING ASSESSMENT: VIVIEN REVIEWED CHART AND SPOKE WITH ATTENDING. PT HAS INCREASED CONFUSION AND ALTERED LFTS. PENDING PATIENTS PROGRESS SHE MAY BE STABLE TO DISCHARGE IN 1-2 DAYS BACK TO [facility]. CM NOTIFIED LIASON AND SHE STATES THEY CAN ACCEPT PATIENT ONCE MEDICALLY STABLE EVEN OVER THE WEEKEND. LIASON STATING TO CONTACT ADMISSIONS PHONE AT [phone] AND NOTIFY THEM OF DISCHARGE AND THEY WILL FACILITATE TRANSPORTATION AND PROVDE FAX NUMBER FOR ORDERS/DISCHARGE SUMMARY. CHART COPY WILL NEED TO BE ORDERED AND REPORT CALLED TO [phone]. CONTACT PATIENTS SISTER/DPOA EARMALENE TO NOTIFY OF DISCHARGE [phone].
--- NOTE | 2021-01-06 12:30 | NUR ---
Pt seen for LOS, admitted with increased confusion and altered LFTs. Pt with fair to good appetite, currently eating 50-100% of meals. Current wt noted at 241#, which is increase of 10# from November of this year. Blister noted to R heel, wound care following with heel off-loaded. No c/o GI distress. Pt remains low nutrition risk with current interventions in place.
--- NOTE | 2021-01-06 13:36 | NUR ---
WOUND CARE NOTE; I WAS ASKED TO GET A OFFLOADING BOOT AND DELIVER IT TO THE PATIENT. I DISCUSSED IT WITH THE RN WHO WILL APPLY IT IMMIDIATLY. I ALSO EXPLAINED IT TO THE PATIENT. DISCSSED WITH RN
[2021-01-06 16:30] VITALS: BP 137/76
[2021-01-06 19:58] VITALS: BP 134/60
--- NOTE | 2021-01-06 23:19 | NUR ---
ASSESSED AT START OF SHIFT. PT C/O PAIN MANAGED BY PO PAIN PILL GIVEN X1. LICODCAINE PATCH REMOVED FROM RT LEG. RT FOOT ON PRAFO BOOT. EVENING MEDS GIVEN AND PT ALEIDA IT WELL. FAIR APPEITTE AT DINNER. BSG CHECKED NO COVERAGE GIVEN TONIGHT. FOLLEY INTACT PT REPOSITIONED FOR COMFORT. FALL PREC IN PLACE AND CALL LIGHT AT REACH.
[2021-01-07 06:24] LABS: CALCIUM 8.8 mg/dL (8.5-10.1); CREATININE 2.5 mg/dL (0.6-1.0); POTASSIUM 5.2 mmol/L (3.5-5.1)
[2021-01-07 11:41] LABS: MCH 24.5 pg (26.0-34.0)
[2021-01-07 11:42] LABS: MCHC 32.7 g/dL (28.0-37.0); MCV 74.9 fL (80.0-100.0); RBC 2.63 mil/uL (4.20-5.00); RDW 24.4 % (10.5-14.5); WBC 11.2 thou/uL (4.0-11.0)
[2021-01-07 12:03] LABS: HEMATOCRIT 19.7 % (37.0-47.0); HEMOGLOBIN 6.4 gm/dL (12.0-15.0)
[2021-01-07 15:51] VITALS: BP 141/58
[2021-01-07 16:36] VITALS: BP 131/72; BP 142/60; BP 145/60; BP 150/59
[2021-01-07 20:15] VITALS: BP 141/62
--- NOTE | 2021-01-08 03:13 | NUR ---
ASSUMED PT CARE AT SHIFT CHANGE. PT IS A&OX4. VSS. PT IS ON 2L O2. PT IS SOMETIMES FORGETFUL. PT HAS A PATENT LEFT AC. PT VOICES HER CONCERN ABOUT GOING BACK TO THE FACILITY THAT SHE CAME FROM BUT TOLD ME THAT SHE DID NOT WANT ME TO MENTION IT BECAUSE SHE DID NOT WANT IT TO GET BACK TO HER DPOA - SISTER. PT TRIES MULTIPLE TIMES TO USE THE BEDPAN BUT WAS UNABLE TO HAVE A BM. PT WANTS TO GET UP THE THE BSC BUT STATES THAT SHE HASN'T BEEN UP IN 10 DAYS. PT HAS A WOUND ON HER RIGHT BUTTOCK. PICTURES TAKEN AND PUT IN HER CHART. HOURLY ROUNDING DONE ON PT. WILL CONTINUE TO MONITOR.
[2021-01-08 04:05] VITALS: BP 161/60
[2021-01-08 08:10] VITALS: BP 174/74
[2021-01-08 11:40] LABS: ABSOLUTE NEUTROPHILS 7.9 thou/uL (1.4-8.2); BASOPHILS 0.3 % (0.0-2.0); EOSINOPHILS 2.8 % (0.0-3.0); HEMATOCRIT 25.1 % (37.0-47.0); LYMPHOCYTES 20.4 % (24.0-44.0); MCH 24.7 pg (26.0-34.0); MCHC 31.8 g/dL (28.0-37.0); MCV 77.6 fL (80.0-100.0); MONOCYTES 11.4 % (1.0-8.0); PLATELET COUNT 290 thou/uL (150-400); POLYS 65.1 % (36.0-66.0); RBC 3.23 mil/uL (4.20-5.00); RDW 24.1 % (10.5-14.5); WBC 12.2 thou/uL (4.0-11.0)
[2021-01-08 11:43] LABS: CALCIUM 9.2 mg/dL (8.5-10.1); CREATININE 2.3 mg/dL (0.6-1.0); POTASSIUM 4.6 mmol/L (3.5-5.1)
[2021-01-08 13:12] LABS: ANISOCYTOSIS 3+
[2021-01-08 17:00] VITALS: BP 174/74
--- NOTE | 2021-01-08 18:23 | NUR ---
PT ASSESSEDA AT START OF SHIFT. HGB BETTER TODAY AFTER BLOOD TRANSFUSION YESTERDAY. RT THIGH STILL C/O PAIN. ORDERED CT SCAN FOR TODAY TO CHECK FOR BLEEDING IN LEG. APPETITE FAIR. OXYGEN 1.5L/MIN. TAKING PAIN PILLS W/ SOME RELIEF IN LEG.
--- NOTE | 2021-01-08 19:39 | NUR ---
UPDATED LAURIE/LIAISON OF [facility] THAT PATIENT WAS NOT DISCHARGED THIS WEEKEND. ADDITIONAL LABS ORDERED. DCP TO UPDATE AND FACILITATE DISCHARGE IF STATUS CHANGES.
[2021-01-08 22:25] VITALS: BP 159/65
[2021-01-08 23:35] VITALS: BP 158/65
--- NOTE | 2021-01-09 03:29 | NUR ---
RECIEVED CARE OF THIS PATIENT AT 1900. PATIENT ALERT AND ORIENTED [place], PLACE AND SITUATION. FERNANDEZ PATENT. REMAINS ON BEDREST WITH R LOWER EXT ELEVATED. WENT FOR A CT OF LOWER EXT. ACCUCHECK WAS 89, NO COVERAGE NEEDED. C/O PAIN. MED GIVEN. SLEPT MOST OF NIGHT.
[2021-01-09 03:36] VITALS: BP 162/67
[2021-01-09 06:22] LABS: HEMOGLOBIN 8.7 gm/dL (12.0-15.0); MCHC 32.1 g/dL (28.0-37.0); MCV 77.9 fL (80.0-100.0); RBC 3.46 mil/uL (4.20-5.00); RDW 24.7 % (10.5-14.5); WBC 13.3 thou/uL (4.0-11.0)
[2021-01-09 06:33] LABS: CALCIUM 9.7 mg/dL (8.5-10.1); POTASSIUM 4.7 mmol/L (3.5-5.1)
[2021-01-09 07:55] VITALS: BP 143/97
[2021-01-09 09:48] VITALS: BP 143/97
--- NOTE | 2021-01-09 11:01 | NUR ---
WOUND CARE F/U; PT ALERT AND COOPERATIVE, PURPLISH BLISTER R HEEL SAME, PT LIKES LIDODERM PATCH OVER HEEL DUE TO PAIN, SUGGESTED TO APPLY PATCH NEAR HEEL BUT NOT DIRECTLY ON HEEL AREA NEEDS TO BE PAINTED W/ BETADINE DAILY, OFF LOADING L HEEL ON PILLOWS, WEARING PRAFO BOOT TO R HEEL. NO S/S INFECTION RECOMMENDATIONS; CONT PRAFO BOOT R HEEL. OFF LOADING L HEEL. CONT POC W/ BETADINE DAILY DRUG SAFETY ASSOCIATE AWARE
[2021-01-09] MEDS ORDERED: LEVOFLOXACIN500 MG PO (11:47)
--- NOTE | 2021-01-09 12:22 | NUR ---
ON-GOING ASSESSMENT: VIVIEN REVIEWED CHART AND SPOKE WITH ATTENDING WHO STATES PT CAN DISCHARGE TODAY TO SNF. CM NOTIFIED LIASON AT [facility] WHO REPORTS THEY CAN ACCEPT HER. CM FAXED D/C ORDERS TO FACILITY ALONG WITH NEGATIVE COVID TEST AND SHE REPORTS THEY HAVE ARRANGED TRANSPORTATION FOR [phone]. VIVIEN NOTIFIED PT, BEDSIDE RN, AND PATIENTS SISTER LATRICE. CHART COPY WAS ORDERED. BEDSIDE RN HAS THE NUMBER FOR REPORT. PT REPORTS NO FURTHER NEEDS FROM VIVIEN AT THIS TIME.
== END 2021-01-09 15:41 | DRG 871 ==
LOC: ER 17:34 → 4S 21:29 → EROBS 21:29 → 4W 21:29 → 4S 01-05 16:53
PROVIDERS: Emergency Medicine; Nurse Practitioner Family; ADMIT Hospitalist; ATTEND Hospitalist
PROC: 30233N1 Transfusion of Nonautologous Red Blood Cells into Peripheral Vein, Percutaneous Approach (ICD-10-PCS; principal; 2021-01-07)
DX: A41.9 Sepsis, unspecified organism (principal); G93.41 Metabolic encephalopathy; N39.0 Urinary tract infection, site not specified; N18.4 Chronic kidney disease, stage 4 (severe); E46 Unspecified protein-calorie malnutrition; Z68.41 Body mass index [BMI] 40.0-44.9, adult; I13.0 Hypertensive heart and chronic kidney disease with heart failure and stage 1 through stage 4 chronic kidney disease, or unspecified chronic kidney disease; R53.81 Other malaise; G89.29 Other chronic pain; G47.33 Obstructive sleep apnea (adult) (pediatric); E78.5 Hyperlipidemia, unspecified; E11.22 Type 2 diabetes mellitus with diabetic chronic kidney disease; I50.9 Heart failure, unspecified; D50.9 Iron deficiency anemia, unspecified; I25.10 Atherosclerotic heart disease of native coronary artery without angina pectoris; Z86.16 Personal history of COVID-19; Z86.718 Personal history of other venous thrombosis and embolism; I25.2 Old myocardial infarction; Z79.01 Long term (current) use of anticoagulants; Z79.899 Other long term (current) drug therapy; Z79.4 Long term (current) use of insulin; Z88.8 Allergy status to other drugs, medicaments and biological substances
CPT/HCPCS: 10047; 10102